=== PATIENT | male | born 1970 | race Caucasian/White ===

== ENCOUNTER → 2017-08-05 13:00 | Outpatient (CLI) | payer BC, SELFPAY ==
[2017-08-05 16:05] LABS: Anion Gap 7 (5-15); BUN 13 mg/dL (7-18); BUN/Creat Ratio 15.1 RATIO (10-20); Calcium,Total 8.8 mg/dL (8.5-10.1); Chloride 105 mmol/L (98-107); Cholesterol 181 mg/dL (200); Creatinine, Serum 0.86 mg/dL (0.70-1.30); EST Glomerular Filtration Rate 102 mL/min (>60); Est Glom Filt Rate - Afr Amer 123 mL/min (>60); Glucose 69 mg/dL (74-106); High Density Lipoprotein 38 mg/dL; Potassium 3.7 mmol/L (3.5-5.1); Sodium Level 140 mmol/L (136-145); Triglycerides 139 mg/dL; Very Low Density Lipoprotein 28 mg/dL (5-40)
== END ==
PROVIDERS: Family Provider Family Medicine; PCP Family Medicine; Visit Provider Family Medicine
DX: I10 Essential (primary) hypertension (principal)
CPT/HCPCS: 36415; 80048; 80061

== ENCOUNTER → 2017-08-10 10:17 | Outpatient (CLI) | payer BC, SELFPAY ==
--- NOTE | 2017-08-10 10:25 | RAD_ITS ---
STUDY: X-RAY - LEFT KNEE REASON FOR EXAM: Male, 47 years old. Pain. No known injury. TECHNIQUE: 4 view(s) of the knee. COMPARISON: None. FINDINGS: Normal visualized distal femur. Normal visualized proximal tibia and fibula. Normal proximal tibiofibular articulation. There is moderate degenerative arthrosis of the medial femorotibial compartment with moderate joint space narrowing. Normal lateral femorotibial compartment. Normal patellofemoral articulation. The soft tissue structures are unremarkable. RAD/Knee 4 or More Views IMPRESSION: Degenerative arthrosis. Electronically Signed: Wilfrid Ng MD at 15:01 EST Tel [phone], Service support ,
== END ==
LOC: MTRAD 10:22
PROVIDERS: Family Provider Family Medicine; PCP Family Medicine; Visit Provider Family Medicine
DX: M25.562 Pain in left knee (principal)
CPT/HCPCS: 73564

== ENCOUNTER → 2017-11-06 16:03 | Outpatient (CLI) | payer BC, SELFPAY ==
[2017-11-06 18:01] LABS: Uric Acid 4.4 mg/dL (3.5-7.2)
== END ==
PROVIDERS: Family Provider Family Medicine; PCP Family Medicine; Visit Provider Family Medicine
DX: M10.9 Gout, unspecified (principal)
CPT/HCPCS: 36415; 84550

== ENCOUNTER 2018-06-02 12:30 | Outpatient (RCR) | payer OTHER, SELFPAY ==
--- NOTE | 2018-05-13 16:19 | HP.PTEVAL_ITS ---
Patient's Visit Information [address] is a 48 year old M referred to Physical Therapy by Francisco Summers with a diagnosis of Plantar Fascitits. Date of Evaluation: 05/13/18 Physical Therapist: Nanette Herron - Visit Plan Frequency: 2x /Week Duration: 4 Weeks Plan: Dry Needling, Gastron, Cupping and STM with manual stretching of left plantar fascia - Subjective Subjective: Chloe reports that he has had chronic plantar fascititis on the left foot. Has been more intentional on stretching- there are bone spurs on x- ray. Has completely slowed down due to the pain- not running anymore- but wants to get back do doing that. Is wearing [employer] tennis shoes- generic insert into his dress shoes. Does have custom made orthotics and they fit in his clarks but not his other shoes and does not wear them in his running shoes. Is planning on getting an insert into his shoes from [employer]. Today he can feel it on the ball of his foot- its a 3-4/10 its just dull achy pains. Wore a night splint and it seemed to help right away. Agg: sitting for awhile and getting back in, driving in the car, getting up in the AM. Eases:stretching, ibuprofen.Worst: 7/10 Best: 2/10. Pain is located along the heel of the foot and radiates to the top of the foot- no pain up the leg. No N/T. 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 PMHx: HTN, acid refluc Meds: losartin, Zantac PRN. - Objective Posture: FH, RS, Increased kyphosis. Gait: no deviation noted. SLS: 10 sec with increased muscle activation and LOB after 10 sec bilaterally. HR/TR: able with UE A. Palpation: tender along heel medial plantar fascia. ROM: DF neutral, other ROM WNL. Strength: 5/5 throughout. Flex: Gastroc: severe, Soleus: moderate, Hamstring: moderate - Goals Goal 1:: Patient will be I with HEP and progression Goal Time Frame: 4-6 Weeks Goal 2:: Patient will demo full ARom of the left ankle where deficit Goal Time Frame: 4-6 Weeks Goal 3:: Patient will report 0/10 pain for 1 week Goal Time Frame: 4-6 Weeks Goal 4:: Patient will SLS for 30 sec without LOB Goal Time Frame: 4-6 Weeks - Rehabilitation Potential Physical Therapy Diagnosis: Patient presents with hypomobility- he has decreased ROM, flexibility and proprioception leading to increased increased pain with ADL's Rehabilitation Potential: Good - Anticipated Interventions Therapeutic Exercise to Include: Strength training, Balance training, Body mechanics, Postural training, Flexibilty training Manual Therapy Techniques to Include: Mobilization, Functional dry needling, Soft tissue mobilization For the Purpose of:: To improve nutrient delivery to tissue Cryotherapy (ice pack, ice massage): Yes Thermo therapy (hot pack): Yes Ultrasound (thermal/non thermal): Yes Thank you for the opportunity to evaluate your patient. For Medicare and Medicare HMO plans, please review the plan of care and approve it. It will need to be FAXED BACK to us at [phone] for Medicare purposes. Please let me know if there are questions or concerns regarding this plan of care. Physician Signature: Date:
--- NOTE | 2018-11-09 07:33 | HP.PT.NRP ---
HP - Discharge Summary (1) - Patient Information HARMAN [address] was seen in my office for initial evaluation on 05/13/18. The following Plan of Care was established for this patient: Initial Frequency: 2x /Week Initial Duration: 4 Weeks - Anticipated Interventions Therapeutic Exercise to Include: Strength training, Balance training, Body mechanics, Postural training, Flexibilty training Manual Therapy Techniques to Include: Mobilization, Functional dry needling, Soft tissue mobilization For the Purpose of:: To improve nutrient delivery to tissue Cryotherapy (ice pack, ice massage): Yes Thermo therapy (hot pack): Yes Ultrasound (thermal/non thermal): Yes This patient was last seen in our office 06/02/18. Pertinent comments regarding their Physical therapy will appear below: Pt. was treated for his plantar faciatis. Pt. has not been seen in several months and will be DC from PT at this point in time. At this point I will be discontinuing this patient from physical therapy. I would be happy to see this patient again in the future if found appropriate by the physician. Thank you! Francisco Mehta DPT
== END 2018-06-02 19:00 | disposition home or self-care (01) ==
LOC: PT 12:30
PROVIDERS: Family Provider Family Medicine; PCP Family Medicine; Referring Provider Podiatrist; Visit Provider Podiatrist
DX: M72.2 Plantar fascial fibromatosis (principal); M77.32 Calcaneal spur, left foot
CPT/HCPCS: 97110; 97140; 97161

== ENCOUNTER → 2020-02-09 12:26 | Outpatient (CLI) | payer OTHER, SELFPAY ==
--- NOTE | 2020-02-09 12:35 | RAD_ITS ---
STUDY: X-RAY - ABDOMEN/PELVIS REASON FOR EXAM: Male, 50 years old. ABDOMINAL PAIN AND CRAMPING WITH CONSTIPATION ON AND OFF FOR COUPLE MONTHS TECHNIQUE: AP supine and upright views of the abdomen and pelvis. COMPARISON: None. FINDINGS: Normal visualized lung bases. There is an unremarkable bowel gas pattern. There is no demonstrated free abdominal air. There are 4 mm radiopacities overlying the lower pole of the left and right kidneys which may represent nephrolithiasis. Normal soft tissue structures. Normal visualized osseous structures. RAD/Abd Inc Decub and/or Erect IMPRESSION: 4 mm radiopacities overlying the lower poles of the left and right kidneys which may represent nephrolithiasis. The bowel gas pattern is unremarkable with no evidence of ileus or obstruction. There is a normal amount of colonic stool. Electronically Signed: Eron Mckee MD at 17:22 EDT , Service support ,
[2020-02-09 15:35] LABS: Absolute Lymphocyte Count 2.07 X10^3/uL (0.83-4.51); Absolute Neutrophil Count 3.5 X10^3/uL (2.0-7.7); Basophil# 0.03 X10^3/uL; Basophil% 0.5 % (0-1); Eosinophils% 1.6 % (0-5); Hematocrit 41.3 % (40-54); Hemoglobin 13.9 g/dL (13.0-16.5); Lymphocyte # 2.07 X10^3/ul (4.0); Lymphocyte % 33.1 % (19-41); Mean Corp Hgb Conc 33.7 g/dL (32-36); Mean Corpuscular Hgb 31.9 pg (27.0-32.0); Mean Corpuscular Volume 94.7 fL (80-94); Mean Platelet Vol. 9.4 fl (6.2-12.0); Monocyte# 0.56 X10^3/uL; NRBC Flagged by Analyzer 0 % (0-5); Neutrophil # 3.48 X10^3/uL (2.7-7.7); Neutrophil % 55.6 % (47-70); Platelet Count 301 K/mm3 (150-450); RBC Distribution Width CV 12.5 % (11.6-14.6); RBC Distribution Width SD 43.5 fl (35.1-43.9); Red Blood Count 4.36 M/mm3 (4.6-6.2); White Blood Count 6.3 K/mm3 (4.4-11.0)
[2020-02-09 15:53] LABS: Erythrocyte Sedimentation Rate 10 mm/hr (0-15)
[2020-02-09 15:54] LABS: AST(SGOT) 16 U/L (15-37); Alanine Aminotransfer ALT/SGPT 36 U/L (16-61); Albumin, Serum 3.8 g/dL (3.2-5.0); Alkaline Phosphatase 67 U/L (45-117); Anion Gap 4 (5-15); BUN 12 mg/dL (7-18); BUN/Creat Ratio 13.9 RATIO (10-20); Calcium,Total 8.9 mg/dL (8.5-10.1); Chloride 104 mmol/L (98-107); Cholesterol 193 mg/dL (200); Creatinine, Serum 0.86 mg/dL (0.70-1.30); EST Glomerular Filtration Rate 100 mL/min (>60); Est Glom Filt Rate - Afr Amer 121 mL/min (>60); Glucose 88 mg/dL (74-106); High Density Lipoprotein 37 mg/dL; Potassium 3.9 mmol/L (3.5-5.1); Protein, Total 7.8 g/dL (6.4-8.2); Sodium Level 138 mmol/L (136-145); Triglycerides 126 mg/dL; Very Low Density Lipoprotein 25 mg/dL (5-40)
== END ==
PROVIDERS: PCP Family Medicine; Referring Provider Family Medicine; Visit Provider Family Medicine
DX: R10.9 Unspecified abdominal pain (principal); I10 Essential (primary) hypertension
CPT/HCPCS: 36415; 74019; 80053; 80061; 85025; 85652

== ENCOUNTER 2020-03-23 10:02 | Day surgery (SDC) | payer OTHER, SELFPAY ==
[2020-03-14 13:49] VITALS: BMI 30.4
[2020-03-23 10:21] VITALS: BP 124/86; PULSE 68; RESP 16; TEMP 36.6; O2SAT 96; BMI 33.7
--- NOTE | 2020-03-23 10:24 | HP.PCM_ITS ---
Problem List (1) GI bleed Status: Acute Qualifiers: GI bleed type/associated pathology: anorectal hemorrhage Qualified Code(s): K62.5 - Hemorrhage of anus and rectum History and Physical Date of Admission: 03/23/20 Intake Vital Signs 03/14/20 Height 5 ft 11 in 03/14/20 Weight: 245 lb 9 oz 03/14/20 BMI 34.2 03/14/20 BP 135/86 H 03/14/20 Blood Pressure Location Rt brachial 03/14/20 Position Sitting 03/14/20 Respiration 18 03/14/20 Pulse 69 03/14/20 Temp 98.1 F 03/14/20 Temp Source Temporal 03/14/20 Pulse Oximetry (%) 99 03/14/20 Oxygen Delivery Method room air Intake Visit Reasons: C-Scope Chief Complaint: blood per rectum Child Protective Services Social Worker Required: No Is patient in pain?: No Allergies lisinopril Adverse Reaction (Mild, Verified 03/14/20 13:29) cough Medications Omeprazole/Sodium Bicarbonate [Zegerid 20 mg Capsule] 20 ea PO DAILY 08/12/16 [History Confirmed 03/14/20] fluticasone propionate 50 mcg/actuation nasal spray,suspension 1 spray INTRANASAL BID PRN 03/14/20 [History Confirmed 03/14/20] losartan 50 mg tablet tab PO 03/14/20 [History Confirmed 03/14/20] naproxen 500 mg tablet 500 mg PO BID PRN tab 03/14/20 [History] PFSH Medical History (Updated 03/14/20 @ 13:38 by Yudith To) GERD (gastroesophageal reflux disease) (Acute) HAKEEM (obstructive sleep apnea) (Acute) Sleep apnea (Acute) HTN (hypertension) (Chronic) Surgical History (Updated 03/14/20 @ 13:38 by Yudith To) History of wisdom tooth extraction (Acute) Family History (Updated 03/14/20 @ 13:39 by Yudith To) Mother Hypertension Diverticulitis Grandfather Cancer prostate Social History (Updated 03/14/20 @ 13:[address] Vadim Dhaliwal MD) Smoking Status: Light Smoker (<10/day) Smokeless tobacco user: other HPI HPI HPI: HARMAN STRE[address], is a 50 M who presents to the office today for HPI HPI HPI: [address], is a 50 M who presents to the office today for colonoscopy. Patient reports that he has been having cramping and bleeding in his stool all summer long. He has not had problems with this before. He is never had a colonoscopy. He has no family history of inflammatory bowel disease. He reports that he has no family history of colon cancer. He is not having any nausea or vomiting. He says that this intermittently occurs and does not happen every time. It is bright with no clots. ROS General General: No weight change, appetite, fatigue, colon cancer, breast cancer or weakness HEENT HEENT: No difficulty swallowing, eye injury, eye surgery, swollen glands or hoarseness Endo Endocrine: No thyroid disease, diabetes mellitus, thyroid cancer, Hair loss, heat intolerance or cold intolerance Musc Musculoskeletal: No back problems, arthritis, rheumatoid arthritis, gout or joint pain Cardio Cardiovascular: Yes high blood pressure; no murmur, pacemaker, heart disease, atrial fibrillation, heart attack, heart stent, palpitations, shortness of breat with exertion or chest pain Psych Psychiatric: No depression, anxiety or hearing voices Resp Respiratory: No shortness of breath, Yes sleep apnea, No cough, No COPD, No asthma, No emphysema, No wheezing Gastro Gastrointestinal: Yes abdominal pain, No nausea or vomiting, No diarrhea, No constipation, Yes blood in stool, Yes acid reflux, No hemorrhoids, No ulcers, No gallbladder problem, No black,tarry stools Gui Hematologic: No blood thinners, No blood disorders, No bleeding, No anemia, No blood clots Neuro Neurologic: No weakness Exam Const General: cooperative Orientation: alert, oriented x3 Resp Effort & Inspection: normal respiratory effort Auscultation: clear to auscultation bilaterally Cardio Rate: regular rate Rhythm: regular rhythm Heart Sounds: no murmurs GI Inspection: non-distended Palpation: soft, nontender Assessment & Plan Problems 1. Rectal hemorrhage K62.5 Plan The patient is having off-and-on rectal bleeding with intermittent constipation. The patient is also having left lower quadrant abdominal cramping. I recommend colonoscopy. I explained endoscopy in detail to the patient. I explained the risks including but not limited to stroke or heart attack with anesthesia, perforation of the GI tract, bleeding, infection. I explained that any of these could necessitate further emergency surgery. The patient understands and all questions were answered sufficiently. The patient wishes to proceed with procedure. We discussed the current risks associated with COVID-19. While it is understood that there is a community spread of COVID-19, the risk of sudarshan COVID-19 while at [facility] ([facility]) is very low; however, the risk cannot be completely mitigated because of the community spread of the disease. We discussed in detail the risk of exposure to and/or potential harm posed by the COVID-19 virus with having a surgery/procedure at this time versus the risk of delaying the surgery/procedure. It is not possible to know either the risk of delaying the surgery or procedure or chance of getting an infection with perfect accuracy, but a joint decision was made to proceed at this time with the scheduled surgery/procedure as indicated on the consent form. Patient was notified that we will need to comply with any screening or testing [facility] wishes to perform or that surgery may be delayed for any positive results. Vadim Dhaliwal MD Pager: [facility] [address] [place] [address], [address] [place] [address] Office: I have re-examined the patient. There are no clinical changes since date of exam.
[2020-03-23] MEDS: Lactated Ringers 1,000 ML 100 ML IV (10:39)
[2020-03-23 11:00] VITALS: BP 106/65; BP 124/86; PULSE 67; RESP 16; TEMP 36.6; O2SAT 96
--- NOTE | 2020-03-23 11:00 | OP.COLON_ITS ---
Patient Name: Andres Dupree Procedure Date: 03/23/2020 10:34 AM Date of : 1970 Age: 50 Procedure: Colonoscopy Indications: Hematochezia Providers: Vadim Dhaliwal MD Referring MD: Juan Holden Medicines: Monitored Anesthesia Care Patient Profile: This is a 50 year old male. Refer to note in patient chart for documentation of history and physical. Last Colonoscopy: none. The patient's first colonoscopy is today. Complications: No immediate complications. Estimated blood loss: Minimal. Procedure: Pre-Anesthesia Assessment: - Prior to the procedure, a History and Physical was performed, and patient medications and allergies were reviewed. The patient's tolerance of previous anesthesia was also reviewed. The risks and benefits of the procedure and the sedation options and risks were discussed with the patient. All questions were answered, and informed consent was obtained. Prior Anticoagulants: The patient has taken no previous anticoagulant or antiplatelet agents. After reviewing the risks and benefits, the patient was deemed in satisfactory condition to undergo the procedure. After I obtained informed consent, the scope was passed under direct vision. Throughout the procedure, the patient's blood pressure, pulse, and oxygen saturations were monitored continuously. The colonoscope was introduced through the anus and advanced to the cecum, identified by appendiceal orifice and ileocecal valve. The colonoscopy was performed without difficulty. The patient tolerated the procedure well. The quality of the bowel preparation was good. Scope In: 10:45:49 AM Scope Withdrawal Time 0 hours 6 minutes 32 seconds Scope Out: 10:55:44 AM Total Procedure Duration Time 0 hours 9 minutes 55 seconds Findings: The entire examined colon appeared normal on direct and retroflexion views. Non-bleeding internal hemorrhoids were found during retroflexion. Impression: - The entire examined colon is normal on direct and retroflexion views. - Non-bleeding internal hemorrhoids. - No specimens collected. Recommendation: - Repeat colonoscopy in 10 years for screening purposes. - Return to my office if bleeding persists to discuss hemorrhoidectomy - Discharge patient to home. - Resume previous diet. - Continue present medications. Procedure Code(s): --- Professional --- 39441, Colonoscopy, flexible; diagnostic, including collection of specimen(s) by brushing or washing, when performed (separate procedure) Diagnosis Code(s): --- Professional --- K64.8, Other hemorrhoids K92.1, Melena (includes Hematochezia) CPT copyright 2017 [employer]. All rights reserved. The codes documented in this report are preliminary and upon napper grinder review may be revised to meet current compliance requirements. Vadim Dhaliwal MD 03/23/2020 10:59:55 AM This report has been signed electronically. Number of Addenda: 0 Note Initiated On: 03/23/2020 10:34 AM
--- NOTE | 2020-03-23 11:00 | OP.CCLET_ITS ---
03/23/2020 Juan Holden [address] [place] [address] Re : Colonoscopy procedure for Andres Dupree Dear Dr. Holden This procedure was performed on Monday, March 23, 2020. My impressions and recommendations are as follows: Impressions : - The entire examined colon is normal on direct and retroflexion views. - Non-bleeding internal hemorrhoids. - No specimens collected. Recommendations : - Repeat colonoscopy in 10 years for screening purposes. - Return to my office if bleeding persists to discuss hemorrhoidectomy - Discharge patient to home. - Resume previous diet. - Continue present medications. My findings are described in the full procedure note, which is enclosed. If I can be of further assistance, please feel free to contact me at Doctor phone number(s): , Work: . Sincerely, Vadim Dhaliwal MD 03/23/2020 10:59:55 AM This report has been signed electronically.
[2020-03-23 11:05] VITALS: BP 114/76; BP 124/86; PULSE 63; RESP 16; O2SAT 96
[2020-03-23 11:10] VITALS: BP 121/66; BP 124/86; PULSE 63; RESP 16; O2SAT 97
[2020-03-23 11:15] VITALS: BP 122/77; BP 124/86; PULSE 62; RESP 16; TEMP 36.5; O2SAT 98
[2020-03-23 11:34] VITALS: BP 124/86
== END 2020-03-23 11:36 | disposition home or self-care (01) ==
LOC: EN 10:02 → AC 10:03
PROVIDERS: Anesthesiology; PCP Family Medicine; Referring Provider Family Medicine; Visit Provider Surgery
PROC: 0DJD8ZZ Inspection of Lower Intestinal Tract, Via Natural or Artificial Opening Endoscopic (ICD-10-PCS; CPT 45378; principal; 2020-03-23 10:55)
DX: K64.8 Other hemorrhoids (principal); K59.00 Constipation, unspecified; Z11.59 Encounter for screening for other viral diseases; I10 Essential (primary) hypertension; K21.9 Gastro-esophageal reflux disease without esophagitis; G47.33 Obstructive sleep apnea (adult) (pediatric); Z79.899 Other long term (current) drug therapy; F17.200 Nicotine dependence, unspecified, uncomplicated
CPT/HCPCS: 45378; 87635; C9803; J7120; J2405; U0003